=== PATIENT | male | born 1955 | race Caucasian/White ===

== ENCOUNTER 2016-04-09 08:56 | Outpatient (CLI) | payer OTHER ==
[2016-04-09] MEDS ORDERED: IOPAMIDOL-300 100 ML VIAL IVP ONE (13:08)
[2016-04-09] MEDS ORDERED: IOPAMIDOL-300 50 ML VIAL PO ONE (13:08)
== END 2016-04-09 08:57 | disposition home or self-care (01) ==
DX: K76.0 Fatty (change of) liver, not elsewhere classified (principal); R91.1 Solitary pulmonary nodule; R10.11 Right upper quadrant pain
CPT/HCPCS: 74160; Q9967

== ENCOUNTER 2016-04-23 07:39 | Outpatient (CLI) | payer OTHER | END 2016-04-23 07:40 | disposition home or self-care (01) | DX: R91.1 Solitary pulmonary nodule (principal) ==

== ENCOUNTER 2016-06-11 08:00 | Outpatient (CLI) | payer OTHER | END 2016-06-11 23:59 | DX: M35.3 Polymyalgia rheumatica (principal); E78.5 Hyperlipidemia, unspecified; I10 Essential (primary) hypertension ==

== ENCOUNTER 2016-07-30 08:05 | Outpatient (CLI) | payer OTHER | END 2016-07-30 08:06 | disposition home or self-care (01) | DX: E11.9 Type 2 diabetes mellitus without complications (principal); R80.9 Proteinuria, unspecified ==

== ENCOUNTER 2017-06-21 08:05 | Outpatient (CLI) | payer OTHER ==
[2017-06-21] MEDS ORDERED: IOPAMIDOL-300 100 ML VIAL ONE (08:22)
[2017-06-21 09:33] LABS: CALCIUM 8.7 mg/dL (8.5-10.3); CREATININE 0.9 mg/dL (0.6-1.2)
[2017-06-21] MEDS ORDERED: IOPAMIDOL-300 100 ML VIAL IVP ONE (09:59)
--- NOTE | 2017-06-21 11:33 | CT Report ---
CT ANGIOGRAM CHEST: 06/21/2017 CLINICAL INDICATION: Chest wall pain, pulmonary nodule. COMPARISON: 04/23/2016. TECHNIQUE: Axial CT images of the chest were obtained with 80 mL Isovue 300 intravenously. Sagittal and coronal 3-D reconstructions were performed. FINDINGS: The heart and great vessels are unremarkable. No hilar or mediastinal lymphadenopathy is present. There is no evidence of pulmonary embolus. The previously noted pulmonary nodule in the right lower lobe now measures 6 mm (previously 5 mm). No new pulmonary nodule or mass lesion is appreciated. No effusion or pneumothorax is present. No focal consolidation. Limited evaluation of upper abdominal structures demonstrates normal adrenal glands. The patient is status post cholecystectomy. Osseous structures demonstrate degenerative changes. IMPRESSION: MINIMAL INCREASE IN SIZE OF RIGHT LOWER LOBE PULMONARY NODULE, NOW MEASURING 6 MM (PREVIOUSLY 5 MM). FOLLOWUP CHEST CT IN 12 MONTHS IS RECOMMENDED, PER [employer] GUIDELINES. NO EVIDENCE OF PULMONARY EMBOLUS OR OTHER ETIOLOGY FOR CHEST PAIN. CT DOSE REDUCTION STATEMENT In accordance with CT protocol optimization, one or more of the following dose reduction techniques were utilized for this exam: automated exposure control, adjustment of mA and/or KV based on patient size, or use of iterative reconstructive technique. TD: 06/21/2017 11:32
== END 2017-06-21 08:06 | disposition home or self-care (01) ==
LOC: DI 08:05
PROVIDERS: ATTEND Family Medicine
DX: R91.1 Solitary pulmonary nodule (principal); R07.89 Other chest pain; R10.11 Right upper quadrant pain; R60.9 Edema, unspecified; E11.9 Type 2 diabetes mellitus without complications; I10 Essential (primary) hypertension; E78.5 Hyperlipidemia, unspecified
CPT/HCPCS: 36415; 71275; 80048; Q9967

== ENCOUNTER 2017-07-14 08:00 | Outpatient (CLI) | payer OTHER ==
[2017-07-14 13:08] LABS: HB2 TOTAL 15.7 g/dL; HEMOGLOBIN A1C 0.98 g/dL; HEMOGLOBIN A1C % 7.9 % (4.6-6.2)
== END 2017-07-14 08:01 | disposition home or self-care (01) ==
LOC: LAB.WCP 08:00
PROVIDERS: ATTEND Family Medicine
DX: I10 Essential (primary) hypertension (principal)
CPT/HCPCS: 36415; 82088; 83036; 84244